=== PATIENT | female | born 1970 | race Caucasian/White ===

== ENCOUNTER 2023-02-01 07:52 | Day surgery (SDC) | payer OTHER ==
[2023-01-31 20:00] VITALS: BP_SYST 131
[~2023-02-01] VITALS: Ht 154.9 cm; Wt 78.2 kg
[~2023-02-01 07:52] MED LIST: CEFAZOLIN SOD 1 GM/ ISO 50 ML PREMIX IV ONE
[2023-02-01] MEDS ORDERED: BUPIVACAINE /PF 0.25% 30 ML VIAL INJ ONE (09:30)
[2023-02-01] MEDS ORDERED: ONDANSETRON HCL 4 MG/2 ML VIAL ONE ×2 (09:30→14:40)
[2023-02-01] MEDS ORDERED: DESFLURANE 15 MIN GAS INH ONE (09:30)
[2023-02-01] MEDS ORDERED: GLYCOPYRROLATE 0.2 MG/ML VIAL ONE (09:30)
[2023-02-01] MEDS ORDERED: PROPOFOL 200MG/ 20ML VIAL (DIPRIVAN) IV ONE (09:30)
[2023-02-01] MEDS ORDERED: NEOSTIGMINE METHYLSULFATE 1 MG/ML, 10 ML VIAL ONE (09:30)
[2023-02-01] MEDS ORDERED: MIDAZOLAM HCL 5 MG/5 ML VIAL ONE (09:30)
[2023-02-01] MEDS ORDERED: NS 1000 ML IV.SOLN IV ONE (09:30)
[2023-02-01] MEDS ORDERED: KETOROLAC TROMETHAMINE 30 MG VIAL ONE (09:30)
[2023-02-01] MEDS ORDERED: fentaNYL CITRATE 250 MCG/5 ML AMP ONE (09:30)
[2023-02-01] MEDS ORDERED: ROCURONIUM BROMIDE 10 MG/ML (ZEMURON) ONE (09:30)
[2023-02-01] MEDS ORDERED: DEXAMETHASONE SOD PHOSPHATE 4 MG/ML VIAL ONE (09:30)
[2023-02-01] MEDS ORDERED: NS IRRIG SOLN 1000 ML IR ONE (09:30)
[2023-02-01] MEDS ORDERED: LIDOCAINE 2%, 20 ML MDV ONE (09:30)
[2023-02-01] MEDS ORDERED: HYDROmorphone 1 MG/ML INJ. CARTRIDGE IVP PRN ×3 (10:15→15:45)
[2023-02-01] MEDS ORDERED: LR 1,000 ML IV SCH (10:15)
[2023-02-01] MEDS ORDERED: MEPERIDINE HCL/PF 25 MG/ML DISP.SYRIN IVP PRN (10:15)
[2023-02-01] MEDS ORDERED: LABETALOL 100 MG/ 20ML VIAL IVP PRN (10:15)
[2023-02-01] MEDS ORDERED: METOCLOPRAMIDE HCL 10 MG/2 ML VIAL IVP PRN (10:15)
[2023-02-01] MEDS ORDERED: hydrALAZINE HCL 20 MG/ML VIAL IVP PRN (10:15)
[2023-02-01] MEDS ORDERED: ACETAMINOPHEN I.V. 1000 MG 100 ML IV ONE (10:30)
[2023-02-01] MEDS ORDERED: HYDROcodone/ACETAMIN 5-325 MG TAB (NORCO/ VICODIN) PO PRN ×4 (10:45→17:30)
[2023-02-01] MEDS ORDERED: D5/0.45 NS 1,000 ML IV SCH (10:45)
[2023-02-01] MEDS ORDERED: HYDROcodone/ACETAMIN 5-325 MG TAB (NORCO/ VICODIN) ONE (12:50)
[2023-02-01] MEDS ORDERED: HYDROcodone/ACETAMIN 10-325 MG TAB ONE (15:19)
[2023-02-01] MEDS ORDERED: HYDROmorphone 1 MG/ML INJ. CARTRIDGE ONE (15:35)
[2023-02-01] MEDS ORDERED: ONDANSETRON HCL 4 MG/2 ML VIAL IVP PRN (17:30)
[2023-02-01] MEDS ORDERED: LISI1TAB53 PO (18:17)
[2023-02-01] MEDS ORDERED: AMLO2.5T2 PO (18:17)
[2023-02-01 20:00] VITALS: BP_SYST 131
[2023-02-02 01:28] VITALS: BP_SYST 124
[2023-02-02 08:00] VITALS: BP_SYST 122
[2023-02-02 10:55] VITALS: BP_SYST 122
[2023-02-02 11:08] VITALS: BP_SYST 141
== END 2023-02-02 12:55 | disposition home or self-care (01) ==
LOC: SDS 07:52 → SMU 07:53 → SDS 02-02 12:55
PROVIDERS: ATTEND Colon & Rectal Surgery
DX: K81.1 Chronic cholecystitis (principal); K82.8 Other specified diseases of gallbladder; I10 Essential (primary) hypertension; E66.9 Obesity, unspecified; Z68.34 Body mass index [BMI] 34.0-34.9, adult
CPT/HCPCS: 87081; 47563; 74300; 88304; J3490 ×2; J0690; J1100; J1885; J2001; J2250; J2405; J2704; J3010; J1170; Q9967; J7030; C1758; C1727; J0131; J2710; 76000